=== PATIENT | male | born 1995 | race Caucasian/White ===

== ENCOUNTER 2022-07-19 16:13 | Inpatient (IN) | payer MEDICAID ==
[~2022-07-19] VITALS: Ht 167.6 cm; Wt 82.1 kg
[2022-07-19] MEDS ORDERED: OLAN7.5T22 PO (18:20)
[2022-07-19] MEDS ORDERED: QUET100T PO (18:20)
[2022-07-19] MEDS ORDERED: OLAN5TAB52 PO (20:35)
[2022-07-19] MEDS ORDERED: ZOLPIDEM TARTRATE 10 MG TABLET PO PRN (22:00)
[2022-07-19] MEDS ORDERED: HALOPERIDOL 5 MG TABLET PO PRN (22:00)
[2022-07-19] MEDS ORDERED: LORazepam 2 MG TABLET PO PRN (22:00)
[2022-07-19 22:15] VITALS: BP 121/76
[2022-07-20 08:23] VITALS: BP 136/74
[2022-07-20 08:23] LABS: BASOPHILS % (AUTO) 0.4 % (0.0-2.0); HEMATOCRIT 48.8 % (41-53); HEMOGLOBIN 16.2 g/dL (13.5-17.5); LYMPHOCYTES # (AUTO) 2.8 K/uL (1.0-4.8); LYMPHOCYTES % (AUTO) 26.8 % (22.0-44.0); MEAN CORPUSCULAR HEMOGLOBIN 28.8 pg (26.0-34.0); MEAN CORPUSCULAR HGB CONC 33.2 G/dL (31.0-37.0); MEAN CORPUSCULAR VOLUME 87 fL (80-100); MONOCYTES # (AUTO) 0.4 K/uL (0.1-1.0); MONOCYTES % (AUTO) 3.9 % (2.0-9.0); NEUTROPHILS # (AUTO) 7.2 K/uL (1.8-7.7); NEUTROPHILS % (AUTO) 67.9 % (40.0-70.0); PLATELET COUNT (AUTO) 357 K/uL (150-450); RED BLOOD CELL COUNT(AUTO) 5.62 MIL/uL (4.50-5.90); RED CELL DISTRIBUTION WIDTH 13.2 % (11.5-14.5)
[2022-07-20 08:28] LABS: HEMOGLOBIN A1C 5.3 % (3.8-5.6)
[2022-07-20 08:49] LABS: ALANINE AMINOTRANSFERASE 28 U/L (12-78); ALBUMIN 4.1 g/dL (3.4-5.0); ALKALINE PHOSPHATASE 91 U/L (46-116); ANION GAP 10 mmol/L (8-16); ASPARTATE AMINOTRANSFERASE 18 U/L (15-37); BILIRUBIN,TOTAL 0.3 mg/dL (0.1-1.0); CALCIUM, TOTAL 9.7 mg/dL (8.8-10.5); CARBON DIOXIDE 26 mmol/L (22-29); CHLORIDE 103 mmol/L (98-107); CHOL/HDL RATIO 4.1 (4.2-7.3); CHOLESTEROL 207 mg/dL (131-200); CREATININE 0.94 mg/dL (0.60-1.30); FREE T4 (FREE THYROXINE) 1.01 ng/dL (0.76-1.46); GLOMERULAR FILTR. RATE CALC > 60 mL/min (>60); GLUCOSE,RANDOM 147 mg/dL (70-110); HDL CHOLESTEROL 51 mg/dL (40-60); LDL CHOL (CALC.) 126 mg/dL (0-130); SODIUM SERUM 139 mmol/L (136-145); THYROID STIMULATING HORMONE 0.98 uIU/mL (0.36-3.74); TOTAL PROTEIN, SERUM 8.5 g/dL (6.4-8.2); TRIGLYCERIDES 148 mg/dL (15-150); UREA NITROGEN, BLOOD 21 mg/dL (7-18)
[2022-07-20] MEDS ORDERED: ALBUTEROL SULFATE HFA 90 MCG/PUFF 8 GM INHALER IH PRN (15:45)
[2022-07-20] MEDS ORDERED: ONDANSETRON HCL 4 MG TABLET PO PRN (15:45)
[2022-07-20] MEDS ORDERED: ACETAMINOPHEN 325 MG TABLET PO PRN (15:45)
[2022-07-20] MEDS ORDERED: BACITRACIN 28 GM OINTMENT TP PRN (15:45)
[2022-07-20] MEDS ORDERED: PETROLATUM,WHITE 28 GM JELLY TP PRN (15:45)
[2022-07-20] MEDS ORDERED: MAG HYDROX/AL HYDROX/SIMETH ES 30 ML SUSPENSION UDCUP PO PRN (15:45)
[2022-07-20] MEDS ORDERED: DOCUSATE SODIUM 100 MG CAPSULE PO PRN (15:45)
[2022-07-20] MEDS ORDERED: MAGNESIUM HYDROXIDE SUSPENSION 30 ML UDCUP PO PRN (15:45)
[2022-07-20] MEDS ORDERED: CloNIDine HCL 0.1 MG TABLET PO PRN (15:45)
[2022-07-20] MEDS ORDERED: IBUPROFEN 600 MG TABLET PO PRN (15:45)
[2022-07-20] MEDS ORDERED: OMEPRAZOLE 20 MG CAPSULE PO PRN (15:45)
[2022-07-20] MEDS ORDERED: LOPERAMIDE HCL 2 MG CAPSULE PO PRN (15:45)
[2022-07-20 20:15] VITALS: BP 125/73
[2022-07-20] MEDS: RisperiDONE 1 MG TABLET PO SCH (20:20)
[2022-07-21] MEDS: RisperiDONE 1 MG TABLET PO SCH ×2 (08:57→20:16)
[2022-07-21 10:17] VITALS: BP 137/70
[2022-07-21 20:22] VITALS: BP 128/68
[2022-07-21] MEDS ORDERED: RISP1TAB98 PO (20:58)
[2022-07-22] MEDS: RisperiDONE 1 MG TABLET PO SCH (08:57)
[2022-07-22 09:21] VITALS: BP 100/60
[2022-07-22] MEDS ORDERED: RISP1TAB89 PO (11:14)
== END 2022-07-22 13:22 | disposition home or self-care (01) | DRG 753 ==
LOC: EDSEX → B3A 21:51
PROVIDERS: ADMIT Psychiatry & Neurology Psychiatry; ATTEND Psychiatry & Neurology Psychiatry
DX: F31.9 Bipolar disorder, unspecified (principal); F12.10 Cannabis abuse, uncomplicated; F20.9 Schizophrenia, unspecified; F14.10 Cocaine abuse, uncomplicated; F41.9 Anxiety disorder, unspecified; S51.812A Laceration without foreign body of left forearm, initial encounter; W26.0XXA Contact with knife, initial encounter; K59.00 Constipation, unspecified; G47.00 Insomnia, unspecified; Y93.89 Activity, other specified; Y92.89 Other specified places as the place of occurrence of the external cause; Y99.8 Other external cause status
CPT/HCPCS: 80053; 80061; 83036; 84439; 84443; 85025